=== PATIENT | female | born 1940 | race African-American/Black ===

== ENCOUNTER 2018-12-17 20:45 | Inpatient (IN) | payer MEDICARE, MEDICAID ==
[~2018-12-17] VITALS: Ht 165.1 cm; Wt 110.7 kg
[2018-12-17] MEDS ORDERED: DILTIAZEM HCL 5MG/ML 5ML VIAL IV ONE (21:30)
[2018-12-17 21:57] LABS: BASOPHILS % 0.9 % (0.0-2.0); HEMATOCRIT. 37.9 % (36.0-48.0); HEMOGLOBIN. 12.4 g/dL (12.0-16.0); LYMPHOCYTES % 26.1 % (20.0-50.0); MEAN CORPUSCULAR VOLUME 88.3 fL (81.0-99.0); MEAN PLATELET VOLUME 8.1 fl (7.4-10.4); PLATELET 249 x1000/uL (130-400); RED BLOOD CELL COUNT 4.29 mill/uL (4.2-5.4); RED CELL DISTRIBUTION WIDTH 14.6 % (11.6-14.6)
[2018-12-17 22:00] LABS: CHLORIDE 111 mEq/L (98-107)
[2018-12-17 22:01] LABS: INR 1.1; PROTHROMBIN TIME 11.1 sec (9.6-11.0)
[2018-12-18] VITALS (12 sets, daily range): BP systolic 92–137; BP diastolic 50–75
[2018-12-18] MEDS ORDERED: AMLO10TA80 PO (01:11)
[2018-12-18] MEDS ORDERED: LISI40TA4 PO (01:11)
[2018-12-18] MEDS ORDERED: MORPHINE SULFATE 4 MG/ML CPJ (NOT FOR IM USE) IV PRN (01:15)
[2018-12-18] MEDS ORDERED: DIPHENHYDRAMINE 50MG/ML VIAL IV PRN (03:45)
[2018-12-18 08:45] LABS: CHLORIDE 111 mEq/L (98-107)
[2018-12-18 08:47] LABS: BASOPHILS % 1.1 % (0.0-2.0); EOSINOPHILS % 2.8 % (0.0-5.0); HEMATOCRIT. 40.1 % (36.0-48.0); HEMOGLOBIN. 12.9 g/dL (12.0-16.0); LYMPHOCYTES % 38.4 % (20.0-50.0); MEAN CORPUSCULAR HEMOGLOBIN 28.7 pg (28.0-32.0); MEAN CORPUSCULAR VOLUME 89.1 fL (81.0-99.0); MEAN PLATELET VOLUME 8.3 fl (7.4-10.4); MONOCYTES % 6.4 % (2.0-8.0); NEUTROPHILS % 51.3 % (40.0-76.0); PLATELET 257 x1000/uL (130-400); RED CELL DISTRIBUTION WIDTH 14.7 % (11.6-14.6)
[2018-12-18] MEDS ORDERED: AMLODIPINE 10MG TABLET PO SCH (09:00)
[2018-12-18] MEDS ORDERED: ENOXAPARIN 30MG/0.3ML SYR SUBCUT SCH (09:00)
[2018-12-18] MEDS ORDERED: LISINOPRIL 40MG TABLET PO SCH (09:00)
[2018-12-18] MEDS ORDERED: POTASSIUM CHLORIDE 20MEQ TABLET SR PO NR (10:15)
[2018-12-18] MEDS ORDERED: DIGOXIN 500MCG/2ML AMP IV NR (10:15)
[2018-12-18] MEDS ORDERED: ENOXAPARIN 80MG/0.8ML SYR SUBCUT NR (10:30)
[2018-12-18] MEDS: ASPIRIN 81MG EC TABLET PO SCH (10:51)
[2018-12-18] MEDS: DILTIAZEM HCL 30MG TABLET PO SCH ×3 (11:15→23:11)
[2018-12-18] MEDS: TRAMADOL 50MG TABLET PO PRN (16:50)
[2018-12-18] MEDS: ENOXAPARIN 100MG/ML SYR SUBCUT SCH (21:07)
[2018-12-18] MEDS: ATORVASTATIN CALCIUM 20MG TABLET PO SCH (21:07)
[2018-12-19] VITALS (12 sets, daily range): BP systolic 95–158; BP diastolic 48–87
[2018-12-19] MEDS: DILTIAZEM HCL 30MG TABLET PO SCH ×4 (05:05→17:17)
[2018-12-19] MEDS: OMEPRAZOLE 20MG CAPSULE EXTENDED RELEASE PO SCH (06:03)
[2018-12-19 06:25] LABS: BASOPHILS % 0.9 % (0.0-2.0); EOSINOPHILS % 3.6 % (0.0-5.0); HEMATOCRIT. 37.5 % (36.0-48.0); HEMOGLOBIN. 12.4 g/dL (12.0-16.0); LYMPHOCYTES % 40.2 % (20.0-50.0); MEAN CORPUSCULAR HEMOGLOBIN 29.2 pg (28.0-32.0); MEAN CORPUSCULAR VOLUME 88.3 fL (81.0-99.0); MEAN PLATELET VOLUME 8.7 fl (7.4-10.4); MONOCYTES % 10.1 % (2.0-8.0); NEUTROPHILS % 45.2 % (40.0-76.0); PLATELET 238 x1000/uL (130-400); RED BLOOD CELL COUNT 4.25 mill/uL (4.2-5.4); RED CELL DISTRIBUTION WIDTH 14.7 % (11.6-14.6)
[2018-12-19 06:49] LABS: CHLORIDE 108 mEq/L (98-107)
[2018-12-19] MEDS: ASPIRIN 81MG EC TABLET PO SCH (08:18)
[2018-12-19] MEDS: ENOXAPARIN 100MG/ML SYR SUBCUT SCH ×2 (08:19→21:27)
[2018-12-19] MEDS ORDERED: MAGNESIUM 4 G PREMIX 100 ML IV SCH (09:30)
[2018-12-19] MEDS: TRAMADOL 50MG TABLET PO PRN (10:35)
[2018-12-19] MEDS ORDERED: POTASSIUM CHLORIDE 20MEQ TABLET SR PO SCH (11:00)
[2018-12-19] MEDS ORDERED: DIGOXIN 500MCG/2ML AMP IV SCH ×3 (11:00→23:00)
[2018-12-19] MEDS: ATORVASTATIN CALCIUM 20MG TABLET PO SCH (21:27)
[2018-12-20] VITALS (7 sets, daily range): BP systolic 126–140; BP diastolic 48–78
[2018-12-20] MEDS: TRAMADOL 50MG TABLET PO PRN (04:20)
[2018-12-20 06:32] LABS: BASOPHILS % 1.1 % (0.0-2.0); EOSINOPHILS % 3.5 % (0.0-5.0); HEMATOCRIT. 37.5 % (36.0-48.0); HEMOGLOBIN. 12.3 g/dL (12.0-16.0); LYMPHOCYTES % 32.4 % (20.0-50.0); MEAN CORPUSCULAR VOLUME 88.3 fL (81.0-99.0); MEAN PLATELET VOLUME 8.7 fl (7.4-10.4); PLATELET 239 x1000/uL (130-400); RED BLOOD CELL COUNT 4.24 mill/uL (4.2-5.4); RED CELL DISTRIBUTION WIDTH 14.2 % (11.6-14.6)
[2018-12-20] MEDS: OMEPRAZOLE 20MG CAPSULE EXTENDED RELEASE PO SCH (06:33)
[2018-12-20] MEDS: DILTIAZEM HCL 30MG TABLET PO SCH ×2 (06:33)
[2018-12-20 07:24] LABS: CHLORIDE 106 mEq/L (98-107)
[2018-12-20] MEDS: ASPIRIN 81MG EC TABLET PO SCH (08:31)
[2018-12-20] MEDS: ENOXAPARIN 100MG/ML SYR SUBCUT SCH (08:31)
[2018-12-20] MEDS ORDERED: APIX5TAB PO (10:12)
[2018-12-20] MEDS ORDERED: APIXABAN 5 MG TABLET PO SCH (21:00)
== END 2018-12-20 11:52 | disposition home or self-care (01) | DRG 309 ==
LOC: ER 20:45 → 3WST 22:27 → EDBEDREQTM 22:42 → EDBEDREQ 22:42 → ENRESERV 23:46
PROVIDERS: ADMIT Internal Medicine; ATTEND Internal Medicine
DX: I48.91 Unspecified atrial fibrillation (principal); E44.1 Mild protein-calorie malnutrition; Z68.41 Body mass index [BMI] 40.0-44.9, adult; E66.9 Obesity, unspecified; I10 Essential (primary) hypertension; E78.5 Hyperlipidemia, unspecified; R73.9 Hyperglycemia, unspecified; E87.6 Hypokalemia; E87.8 Other disorders of electrolyte and fluid balance, not elsewhere classified; E78.00 Pure hypercholesterolemia, unspecified; I08.1 Rheumatic disorders of both mitral and tricuspid valves; I27.20 Pulmonary hypertension, unspecified; I45.10 Unspecified right bundle-branch block; K21.9 Gastro-esophageal reflux disease without esophagitis; Z90.710 Acquired absence of both cervix and uterus; Z88.0 Allergy status to penicillin; Z98.891 History of uterine scar from previous surgery; Z71.3 Dietary counseling and surveillance
CPT/HCPCS: 36415; 71045; 80048; 80061; 83036; 83735; 83880; 84443; 84484; 85379; 93005; 93306; 96374; 99291; J1160; J1200; J1650; J2270; J3475; J3490; J7050

== ENCOUNTER 2019-09-05 13:55 | Inpatient (IN) | payer MEDICARE, MEDICAID ==
[~2019-09-05] VITALS: Ht 165.1 cm; Wt 104.8 kg
[~2019-09-05 13:55] MED LIST: APIX5TAB PO
[2019-09-05] MEDS ORDERED: DILTIAZEM HCL 90MG TABLET PO ONE (14:15)
[2019-09-05] MEDS ORDERED: ASPIRIN 81MG TABLET PO ONE (14:15)
[2019-09-05] MEDS ORDERED: DILTIAZEM HCL 5MG/ML 5ML VIAL IV ONE (14:15)
[2019-09-05] MEDS ORDERED: NITROGLYCERIN 0.4MG TABLET SL SL PRN (14:15)
[2019-09-05] MEDS ORDERED: DILTIAZEM HCL 30MG TABLET PO NR (14:21)
[2019-09-05 14:50] LABS: BASOPHILS % 1.2 % (0.0-2.0); EOSINOPHILS % 2.1 % (0.0-5.0); LYMPHOCYTES % 33.9 % (20.0-50.0); MEAN CORPUSCULAR HEMOGLOBIN 29.9 pg (28.0-32.0); MEAN PLATELET VOLUME 8.1 fl (7.4-10.4); MONOCYTES % 10.6 % (2.0-8.0); NEUTROPHILS % 52.2 % (40.0-76.0); PLATELET 200 x1000/uL (130-400)
[2019-09-05 14:57] LABS: CHLORIDE 113 mEq/L (98-107)
[2019-09-05 14:59] LABS: INR 1.1; PROTHROMBIN TIME 11.4 sec (9.6-11.0)
[2019-09-05] MEDS ORDERED: ENOXAPARIN 150MG/ML SYR SUBCUT ONE (15:30)
[2019-09-05] MEDS ORDERED: MAGNESIUM/ALUMINUM HYDROXIDE/SIMETHICONE 30ML UDC PO PRN (18:15)
[2019-09-05] MEDS ORDERED: ACETAMINOPHEN 650MG/20.3ML UDC GT PRN (18:15)
[2019-09-05] MEDS ORDERED: DIPHENHYDRAMINE 50MG/ML VIAL IV PRN (18:15)
[2019-09-05] MEDS ORDERED: GUAIFENESIN 200MG/10ML SUGAR FREE UDC PO PRN (18:15)
[2019-09-05] MEDS ORDERED: ACETAMINOPHEN 650MG SUPP PR PRN (18:15)
[2019-09-05] MEDS ORDERED: CLONIDINE 0.1MG TABLET PO PRN (18:15)
[2019-09-05] MEDS ORDERED: ONDANSETRON HCL 4MG/2ML INJ IV PRN (18:15)
[2019-09-05] MEDS ORDERED: NA PHOS,M-B/NA PHOS,DI-BA ENEMA 118ML PR PRN (23:00)
[2019-09-05] MEDS: HYDROCODONE/ACETAMINOPHEN 5/325MG TABLET PO PRN (23:44)
[2019-09-05] MEDS: ACETAMINOPHEN 325MG TABLET PO PRN (23:45)
[2019-09-05] MEDS ORDERED: APIXABAN 5 MG TABLET PO NR (23:45)
[2019-09-06] MEDS ORDERED: DILTIAZEM HCL 30MG TABLET PO NR (00:30)
[2019-09-06] MEDS ORDERED: NA PHOS,M-B/NA PHOS,DI-BA ENEMA 118ML PR PRN (02:30)
[2019-09-06] MEDS ORDERED: MAGNESIUM/ALUMINUM HYDROXIDE/SIMETHICONE 30ML UDC PO PRN (02:30)
[2019-09-06] MEDS ORDERED: ACETAMINOPHEN 650MG SUPP PR PRN (02:30)
[2019-09-06] MEDS ORDERED: ENOXAPARIN 40MG/0.4ML SYR SUBCUT SCH (02:30)
[2019-09-06] MEDS ORDERED: CLONIDINE 0.1MG TABLET PO PRN (02:30)
[2019-09-06] MEDS ORDERED: ONDANSETRON HCL 4MG/2ML INJ IV PRN (02:30)
[2019-09-06] MEDS ORDERED: IPRATROPIUM/ALBUTEROL 0.5-3(2.5)MG/3ML NEB NEB PRN (02:30)
[2019-09-06] MEDS ORDERED: HYDROCODONE/ACETAMINOPHEN 5/325MG TABLET PO PRN (02:30)
[2019-09-06] MEDS ORDERED: ACETAMINOPHEN 325MG TABLET PO PRN (02:30)
[2019-09-06] MEDS ORDERED: GUAIFENESIN 200MG/10ML SUGAR FREE UDC PO PRN (02:30)
[2019-09-06] MEDS ORDERED: DOCUSATE SODIUM 100MG CAPSULE PO PRN (02:30)
[2019-09-06] MEDS ORDERED: ACETAMINOPHEN 650MG/20.3ML UDC GT PRN (02:30)
[2019-09-06] MEDS ORDERED: DIPHENHYDRAMINE 50MG/ML VIAL IV PRN (02:30)
[2019-09-06 05:59] LABS: CHLORIDE 111 mEq/L (98-107)
[2019-09-06] MEDS ORDERED: SODIUM CHLORIDE 0.9% INJ 3ML FLUSH IVF SCH (06:00)
[2019-09-06 06:01] LABS: BASOPHILS % 1.1 % (0.0-2.0); EOSINOPHILS % 3.1 % (0.0-5.0); HEMATOCRIT. 36.6 % (36.0-48.0); LYMPHOCYTES % 41.6 % (20.0-50.0); MEAN CORPUSCULAR HEMOGLOBIN 29.5 pg (28.0-32.0); MEAN CORPUSCULAR VOLUME 90.4 fL (81.0-99.0); MEAN PLATELET VOLUME 8.9 fl (7.4-10.4); MONOCYTES % 7.2 % (2.0-8.0); PLATELET 194 x1000/uL (130-400); RED BLOOD CELL COUNT 4.05 mill/uL (4.2-5.4); RED CELL DISTRIBUTION WIDTH 15.1 % (11.6-14.6)
[2019-09-06 06:06] LABS: LDL CHOLESTEROL 71 mg/dL (5-100)
[2019-09-06 06:08] LABS: CREATINE KINASE 49 IU/L (26-192); HDL CHOLESTEROL 51 mg/dL (40-59)
[2019-09-06 06:10] LABS: CREATINE KINASE MB FRACTION < 1.0 ng/mL (0.5-3.6)
[2019-09-06 07:55] VITALS: BP 122/79
[2019-09-06 08:00] VITALS: BP 122/79
[2019-09-06] MEDS: METOPROLOL TARTRATE 25MG TABLET PO SCH ×2 (09:13→21:00)
[2019-09-06] MEDS: HYDROCODONE/ACETAMINOPHEN 5/325MG TABLET PO PRN ×2 (09:30→20:12)
[2019-09-06] MEDS ORDERED: LISI40TA4 MT (11:29)
[2019-09-06] MEDS ORDERED: TRAM150C25 MT (11:29)
[2019-09-06] MEDS ORDERED: ACET-2708 MT (11:29)
[2019-09-06] MEDS ORDERED: HYDR12.54 MT (11:29)
[2019-09-06] MEDS ORDERED: DILT30TA38 PO (11:29)
[2019-09-06] MEDS: APIXABAN 5 MG TABLET PO SCH ×2 (12:26→20:03)
[2019-09-06] MEDS ORDERED: OMEP10CA5 MT (12:47)
[2019-09-06 13:59] LABS: T4 FREE 1.05 ng/dL (0.76-1.46)
[2019-09-06] MEDS ORDERED: DIGOXIN 125MCG TABLET PO NR (15:00)
[2019-09-06] MEDS ORDERED: LACTULOSE 20G/30ML UDC PO NR (15:00)
[2019-09-06] MEDS ORDERED: BISACODYL 5MG TABLET PO NR (15:00)
[2019-09-06] MEDS ORDERED: BISACODYL 10MG SUPP PR NR (15:00)
[2019-09-06] MEDS ORDERED: BISACODYL 5MG TABLET PO PRN (15:00)
[2019-09-06 15:51] LABS: CREATINE KINASE 54 IU/L (26-192)
[2019-09-06 15:52] LABS: CREATINE KINASE MB FRACTION < 1.0 ng/mL (0.5-3.6)
[2019-09-06 16:00] VITALS: BP 113/66
[2019-09-06] MEDS: DOCUSATE SODIUM 100MG CAPSULE PO PRN ×2 (16:25→16:27)
[2019-09-06] MEDS: SODIUM CHLORIDE 0.9% INJ 3ML FLUSH IVF SCH ×3 (16:47→22:00)
[2019-09-06] MEDS: OMEPRAZOLE 20MG CAPSULE EXTENDED RELEASE PO SCH (16:47)
[2019-09-06 20:00] VITALS: BP 109/86
[2019-09-06] MEDS ORDERED: AMIODARONE HCL 900 MG in DEXT 5% WATER 482 ML IV PRN (21:15)
[2019-09-07] VITALS (9 sets, daily range): BP systolic 106–131; BP diastolic 37–85
[2019-09-07] MEDS: HYDROCODONE/ACETAMINOPHEN 5/325MG TABLET PO PRN ×2 (01:23→13:53)
[2019-09-07] MEDS: DILTIAZEM HCL 30MG TABLET PO SCH ×3 (06:00→21:07)
[2019-09-07] MEDS: SODIUM CHLORIDE 0.9% INJ 3ML FLUSH IVF SCH ×3 (06:59→21:07)
[2019-09-07 07:28] LABS: CHLORIDE 111 mEq/L (98-107)
[2019-09-07 07:31] LABS: EOSINOPHILS % 2.3 % (0.0-5.0); HEMATOCRIT. 35.2 % (36.0-48.0); HEMOGLOBIN. 11.6 g/dL (12.0-16.0); LYMPHOCYTES % 35.8 % (20.0-50.0); MEAN CORPUSCULAR HEMOGLOBIN 29.6 pg (28.0-32.0); MEAN CORPUSCULAR VOLUME 89.6 fL (81.0-99.0); MEAN PLATELET VOLUME 9.2 fl (7.4-10.4); MONOCYTES % 8.3 % (2.0-8.0); NEUTROPHILS % 52.6 % (40.0-76.0); PLATELET 186 x1000/uL (130-400); RED BLOOD CELL COUNT 3.93 mill/uL (4.2-5.4); RED CELL DISTRIBUTION WIDTH 14.6 % (11.6-14.6)
[2019-09-07] MEDS: OMEPRAZOLE 20MG CAPSULE EXTENDED RELEASE PO SCH (07:36)
[2019-09-07 07:39] LABS: HDL CHOLESTEROL 46 mg/dL (40-59); LDL CHOLESTEROL 70 mg/dL (5-100)
[2019-09-07] MEDS: APIXABAN 5 MG TABLET PO SCH ×2 (08:45→20:48)
[2019-09-07] MEDS: METOPROLOL TARTRATE 25MG TABLET PO SCH ×2 (08:46→20:48)
[2019-09-07] MEDS: IPRATROPIUM/ALBUTEROL 0.5-3(2.5)MG/3ML NEB HHN PRN (12:01)
[2019-09-07] MEDS: HYDROCODONE/ACETAMINOPHEN 10/325MG TABLET PO PRN (21:06)
[2019-09-08] VITALS (12 sets, daily range): BP systolic 49–153; BP diastolic 27–93
[2019-09-08] MEDS: SODIUM CHLORIDE 0.9% INJ 3ML FLUSH IVF SCH ×3 (07:04→22:27)
[2019-09-08] MEDS: DILTIAZEM HCL 30MG TABLET PO SCH ×3 (07:04→22:13)
[2019-09-08] MEDS: APIXABAN 5 MG TABLET PO SCH ×2 (08:23→22:22)
[2019-09-08] MEDS: FAMOTIDINE 20MG TABLET PO SCH ×2 (08:23→22:13)
[2019-09-08] MEDS: METOPROLOL TARTRATE 25MG TABLET PO SCH (08:24)
[2019-09-08] MEDS ORDERED: DIGOXIN 500MCG/2ML AMP IV NR ×2 (09:00→19:30)
[2019-09-08] MEDS: AMIODARONE HCL 200 MG TABLET PO SCH ×2 (09:56→22:27)
[2019-09-08 16:31] LABS: BASOPHILS % 0.6 % (0.0-2.0); EOSINOPHILS % 0.9 % (0.0-5.0); HEMATOCRIT. 35.8 % (36.0-48.0); HEMOGLOBIN. 11.9 g/dL (12.0-16.0); LYMPHOCYTES % 20.2 % (20.0-50.0); MEAN CORPUSCULAR HEMOGLOBIN 29.8 pg (28.0-32.0); MEAN CORPUSCULAR VOLUME 89.7 fL (81.0-99.0); MEAN PLATELET VOLUME 8.7 fl (7.4-10.4); MONOCYTES % 8.8 % (2.0-8.0); NEUTROPHILS % 69.5 % (40.0-76.0); PLATELET 196 x1000/uL (130-400); RED BLOOD CELL COUNT 3.98 mill/uL (4.2-5.4); RED CELL DISTRIBUTION WIDTH 14.7 % (11.6-14.6)
[2019-09-08 16:39] LABS: CHLORIDE 107 mEq/L (98-107)
[2019-09-08] MEDS: METOPROLOL TARTRATE 50MG TABLET PO SCH (22:13)
[2019-09-08] MEDS: HYDROCODONE/ACETAMINOPHEN 10/325MG TABLET PO PRN (22:22)
[2019-09-08] MEDS: SODIUM CHLORIDE 45ML SPRAY NS SCH (23:11)
[2019-09-09] VITALS (14 sets, daily range): BP systolic 74–131; BP diastolic 21–93
[2019-09-09] MEDS: SODIUM CHLORIDE 45ML SPRAY NS SCH ×6 (03:00→23:50)
[2019-09-09] MEDS: DILTIAZEM HCL 30MG TABLET PO SCH ×3 (06:35→22:00)
[2019-09-09] MEDS: SODIUM CHLORIDE 0.9% INJ 3ML FLUSH IVF SCH ×3 (06:36→22:07)
[2019-09-09] MEDS: METOPROLOL TARTRATE 50MG TABLET PO SCH ×2 (10:20→21:00)
[2019-09-09] MEDS: FAMOTIDINE 20MG TABLET PO SCH ×2 (10:21→22:00)
[2019-09-09] MEDS: AMIODARONE HCL 200 MG TABLET PO SCH ×2 (10:21→22:00)
[2019-09-09] MEDS: APIXABAN 5 MG TABLET PO SCH ×2 (10:21→22:00)
[2019-09-09] MEDS: DOCUSATE SODIUM 100MG CAPSULE PO PRN (14:17)
[2019-09-09] MEDS: HYDROCODONE/ACETAMINOPHEN 10/325MG TABLET PO PRN (16:14)
[2019-09-09] MEDS ORDERED: ACET-2708 PO (16:37)
[2019-09-09] MEDS ORDERED: DILT240C94 PO (16:37)
[2019-09-09] MEDS ORDERED: CHLO25TA2 PO (16:38)
[2019-09-09] MEDS ORDERED: OMEP20TA2 PO (16:38)
[2019-09-09] MEDS ORDERED: TRAM50TA3 PO (16:39)
[2019-09-09] MEDS ORDERED: CHOL500063 PO (16:42)
[2019-09-09] MEDS ORDERED: VENL37.586 MT (16:42)
[2019-09-09] MEDS ORDERED: LIP40 PO (16:43)
[2019-09-09] MEDS ORDERED: FAMO20TA8 PO (16:43)
[2019-09-09] MEDS ORDERED: DULO30CA52 PO (16:43)
[2019-09-09] MEDS ORDERED: ASPI-1497 PO (16:44)
[2019-09-09] MEDS ORDERED: IBUP-2030 PO (16:45)
[2019-09-09] MEDS ORDERED: AMI2 PO (21:00)
[2019-09-09] MEDS ORDERED: METO-539 PO (21:00)
[2019-09-10] VITALS (9 sets, daily range): BP systolic 102–137; BP diastolic 62–74
[2019-09-10] MEDS ORDERED: REGADENOSON 0.4 MG/5 ML IV ONE ×2 (00:30→12:39)
[2019-09-10] MEDS ORDERED: MAGNESIUM 2 G PREMIX 50 ML IV NR (01:06)
[2019-09-10] MEDS: SOTALOL HCL 80MG TABLET PO SCH ×3 (02:16→21:06)
[2019-09-10] MEDS: SODIUM CHLORIDE 45ML SPRAY NS SCH ×6 (03:00→23:00)
[2019-09-10] MEDS: HYDROCODONE/ACETAMINOPHEN 5/325MG TABLET PO PRN (04:48)
[2019-09-10] MEDS: SODIUM CHLORIDE 0.9% INJ 3ML FLUSH IVF SCH ×2 (06:04→13:56)
[2019-09-10] MEDS: DILTIAZEM HCL 30MG TABLET PO SCH ×2 (07:17→13:55)
[2019-09-10] MEDS: APIXABAN 5 MG TABLET PO SCH ×2 (09:30→21:06)
[2019-09-10] MEDS: FAMOTIDINE 20MG TABLET PO SCH ×2 (09:30→21:07)
[2019-09-10] MEDS: HYDROCODONE/ACETAMINOPHEN 10/325MG TABLET PO PRN (21:07)
[2019-09-11] VITALS (9 sets, daily range): BP systolic 103–145; BP diastolic 35–87
[2019-09-11] MEDS: DILTIAZEM HCL 30MG TABLET PO SCH ×3 (01:00→14:49)
[2019-09-11] MEDS: SODIUM CHLORIDE 0.9% INJ 3ML FLUSH IVF SCH ×3 (01:01→14:49)
[2019-09-11] MEDS: SODIUM CHLORIDE 45ML SPRAY NS SCH ×3 (03:00→11:00)
[2019-09-11] MEDS: IPRATROPIUM/ALBUTEROL 0.5-3(2.5)MG/3ML NEB HHN PRN (06:33)
[2019-09-11] MEDS ORDERED: PROPOFOL 200MG/20ML VIAL IV ONE (08:11)
[2019-09-11] MEDS ORDERED: SUCCINYLCHOLINE CHLORIDE 200MG/10ML IV ONE (08:11)
[2019-09-11] MEDS ORDERED: MIDAZOLAM HCL 2 MG/2 ML VIAL ONE (08:11)
[2019-09-11] MEDS: SOTALOL HCL 80MG TABLET PO SCH ×2 (09:00→11:02)
[2019-09-11] MEDS: FAMOTIDINE 20MG TABLET PO SCH (09:55)
[2019-09-11] MEDS: APIXABAN 5 MG TABLET PO SCH (09:55)
[2019-09-11] MEDS: ACETAMINOPHEN 325MG TABLET PO PRN (10:17)
[2019-09-11] MEDS ORDERED: SOTA80TA25 PO (14:34)
[2019-09-11] MEDS ORDERED: DILT30TA38 PO (14:35)
== END 2019-09-11 15:41 | disposition home or self-care (01) | DRG 309 ==
LOC: ER 13:55 → 5WST 15:32 → EDBEDREQ 15:34 → EDBEDREQSVC 15:34 → ENRESERV 09-06 07:22 → 3WST 09-06 22:12
PROVIDERS: ADMIT Family Medicine; ATTEND Family Medicine
PROC: 5A2204Z Restoration of Cardiac Rhythm, Single (ICD-10-PCS; principal; 2019-09-11)
DX: I48.19 Other persistent atrial fibrillation (principal); E44.1 Mild protein-calorie malnutrition; K21.9 Gastro-esophageal reflux disease without esophagitis; J44.9 Chronic obstructive pulmonary disease, unspecified; E78.5 Hyperlipidemia, unspecified; D64.9 Anemia, unspecified; E83.42 Hypomagnesemia; E66.9 Obesity, unspecified; I50.9 Heart failure, unspecified; I11.0 Hypertensive heart disease with heart failure; E78.00 Pure hypercholesterolemia, unspecified; Z79.899 Other long term (current) drug therapy; Z90.710 Acquired absence of both cervix and uterus; Z88.0 Allergy status to penicillin; Z98.891 History of uterine scar from previous surgery; Z68.38 Body mass index [BMI] 38.0-38.9, adult
CPT/HCPCS: 36415; 71045; 78452; 80048; 80053; 80061; 82550; 82553; 83036; 83735; 83880; 84439; 84443; 84484; 85025; 85379; 92960; 93005; 93017; 93306; 94640; 97162; 97530; 99291; A9500; J0282; J0330; J1160; J1650; J2250; J2704; J2785; J3475; J3490; J7040; J7060